=== PATIENT | male | born 1990 | race Caucasian/White ===

== ENCOUNTER 2024-05-17 08:15 | Emergency (ER) | payer BC, SELFPAY ==
[2024-05-17 08:21] VITALS: BP 135/89
[2024-05-17 09:07] LABS: % Basophils 0.2 % (0-2); % Eosinophils 0.6 % (0-6); % Immature Granulocytes 0.4 % (0-0.5); % Lymphocytes 28.4 % (20.5-51.1); % Monocytes 11.3 % (1.7-9.3); % Neutrophils 59.1 % (42.2-75.2); Absolute Lymphocytes 1.5 10^3/uL (1.2-3.4); Absolute Monocytes 0.6 10^3/uL (0.1-0.6); Absolute Neutrophils 3.1 10^3/uL (1.4-6.5); Hematocrit 46.4 % (39.0-52.0); Hemoglobin 15.6 g/dL (13.0-18.0); Mean Corp Hgb Conc. 33.6 g/dL (33.0-37.0); Mean Corpuscular Volume 83.2 fL (80.0-94.0); Nucleated Red Blood Cells % 0 % (-); Red Blood Cell Count 5.58 10^6/uL (4.70-6.10); White Blood Cell Count 5.2 10^3/uL (4.8-10.8)
[2024-05-17 09:10] LABS: ALT (SGPT) 26 U/L (0-50); AST (SGOT) 26 U/L (17-59); Albumin 4.6 g/dl (3.5-5.0); Alkaline Phosphatase 60 U/L (38-126); Blood Urea Nitrogen 12 mg/dl (9-20); Calcium 9.3 mg/dl (8.4-10.2); Carbon Dioxide 25 mmol/L (22-30); Chloride 101 mmol/L (98-107); Glucose 111 mg/dl (70-99); Potassium 4.8 mmol/L (3.5-5.1); Sodium 137 mmol/L (135-145); Total Bilirubin 1.3 mg/dl (0.2-1.3); Total Protein 6.9 g/dl (6.3-8.2); eGFR > 60.00
[2024-05-17 09:21] LABS: Troponin I < 0.012 ng/ml
--- NOTE | 2024-05-17 09:28 | ED.GENMED ---
History of Present Illness
General
Chief Complaint: Chest Pain
Source: patient
Exam Limitations: none
Time Seen by Provider: 05/17/24 09:16
History of Present Illness
History of Present Illness:
34yoM with no significant past medical history presenting for evaluation of chest pain. Patient has been sick for the past 5 days with body aches, chills, fatigue, nausea, and diarrhea. He was seen by his PCP 2 days ago and was told that he likely
had norovirus. He has been having some soreness in his rib cage intermittently since his symptoms began. He woke up this morning around 7 AM with worsening chest pain. His current pain is located centrally and he describes this as a bruised
feeling and a heaviness. The pain improves if he lies flat and worsens slightly if he leans forward. He also feels somewhat short of breath. He denies any pleuritic pain, diaphoresis, syncope.
Past History
Past History
ED Past Medical History: None
ED Past Surgical History: Tonsilectomy and Urological (Hydrocele Removed)
Social History
Tobacco: Non-smoker
Alcohol: Occasional
Personal:
Living: with family
Phy Exam
General Physical Exam
General Presentation: well appearing and no apparent distress
General age: appears stated age
General Skin: warm and dry
General Habitus: normal
General Mental: alert
ENT Exam
ENT Exam: normocephalic
Cardiovascular Exam
Cardiovascular Exam: regular rate/rhythm and no murmur
Pulmonary Exam
Pulmonary Exam: lungs clear, no respiratory distress, no rales, chest non tender, no crackles and no rhonchi
Neurological Exam
Neurological Exam: alert
Cavour Coma Scale
Eye Opening: Spontaneous
Verbal Response: Oriented
Motor Response: Obeys Commands
GCS Total Score: 15
Skin Exam
Skin Exam: normal color and warm/dry
Psychiatric Exam
Psychiatric Exam: normal mood/affect
Scores
Heart Score for Chest Pain Patients
STEMI patient?: No
History: Slightly or Non-Suspicious
ECG: Normal
Age: </= 45 years
Risk Factors: No Risk Factors
Troponin: </= Normal Limit
Heart Score for Chest Pain Patients: 0
Heart Score Risk: 2.5% MACE over next 6 weeks
PE Wells Score
Symptoms of DVT: No
No alternative diagnosis better explains the illness: No
Tachycardia with pulse > 100: No
Immobilization (>=3 days) or surgery within previous 4 weeks: No
Prior history of DVT or pulmonary embolism: No
Presence of hemoptysis: No
Presence of malignancy: No
Pulmonary Embolism Risk Score: 0
Probability of PE: Pt is low risk
PERC Rule Criteria
Age <50 years: Yes
HR <100 bpm: Yes
Room air oxygen sat >94%: Yes
History of DVT or PE: No
Recent trauma or surgery: No
Hemoptysis: No
Exogenous estrogen: No
Clinical signs suggestive of DVT: No
: No
Considered low risk for PE: Yes
PERC Score: 0
PE can be excluded by PERC: Yes
Course
Orders/Labs/Results
Orders:
Orders
05/17/24 08:24
Electrocardiogram (*1) Urgent
Reason for Study: Chest Pain
EKG- Treatment ONCE
05/17/24 08:33
Complete Blood Count/With Diff Urgent
Comprehensive Metabolic Panel Urgent
Troponin I Urgent
05/17/24 09:26
EKG- Treatment ONCE
CR Chest - 2 Views Urgent
Comment:
Reason For Exam: CP
05/17/24 09:34
COVID-19 Antigen Urgent
Source: Nasal Swab
Influenza A+B Rapid Molecular Urgent
VIVIENNE Source: Nasal Swab
Specimen Description:
05/17/24 10:28
Troponin I Urgent
05/17/24 10:30
Electrocardiogram (*1) Urgent
Reason for Study: Chest Pain
Abnormal Lab Results
05/17/24
08:33
Plt Count 117 L 10^3/uL
(130-400)
MPV 12.2 H fL
(7.4-10.4)
Monocytes % 11.3 H %
(1.7-9.3)
Glucose 111 H mg/dl
(70-99)
05/17/24 08:33
05/17/24 08:33
Vital Signs
Initial and Last Documented VS:
Initial Vital Signs
Temp Pulse Resp BP Pulse Ox
97.4 F 81 18 135/89 100
05/17/24 08:21 05/17/24 08:21 05/17/24 08:21 05/17/24 08:21 05/17/24 08:21
Last Documented Vital Signs
Temp Pulse Resp BP Pulse Ox
97.4 F 77 16 135/78 100
05/17/24 08:21 05/17/24 11:59 05/17/24 11:59 05/17/24 11:59 05/17/24 11:59
MDM/Problems Addressed
Differential Diagnosis Includes:
34yoM here with chest pain. Has been having body aches, chills, malaise for the past few days. Saw PCP and was told it was norovirus. Has been having rib soreness for past few days. Chest pain worsened since waking up this morning. VSS. He is well
appearing in no distress. Exam is reassuring. Differential diagnosis includes but is not limited to: viral illness, bronchitis, pneumonia, myocarditis, less likely ACS, doubt PE as oxygen saturation is 100% and he denies pleuritic pain
Initial ED plan: Cardiac labs and EKG obtained in triage. EKG shows NSR without ischemic changes and troponin WNL. Will check delta troponin/EKG, COVID/flu testing, and CXR.
*EKG
Interpreted by ED Provider?: Yes
EKG Intrepretation Date: 05/17/24
Heart Rate: 100
Rate: normal
Rhythm: sinus
Callery: normal axis
Interval: normal interval
QRS Pattern: normal QRS
Ischemia: no ischemia
*Critical Care Note
Total Time (30-74mins, 75-104mins- exclusive of procedures): Not Applicable
Update Note
Update Note:
COVID/flu testing negative. Repeat EKG and troponin unchanged. CXR is clear without infiltrates. Repeat vitals stable. No indication for hospitalization. Advised close f/u with PCP and strict ED return precautions discussed. Patient in agreement
with plan and was discharged in stable condition.
ED Attending Note
-
Portions of this chart may have been created with voice recognition software.� Occasional wrong word or��sound alike� substitutions may have occurred due to the inherent limitations of voice recognition software.
Discharge Plan
Departure
Patient Disposition: Home (Routine Discharge)
Date of Disposition: 05/17/24
Time of Disposition: 11:51
Patient with high blood pressure during this ER visit?: No
Discharge Problem:
Chest pain
Instructions: Chest Pain PCP Follow Up
Prescriptions:
No Action
amoxicillin-pot clavulanate 875-125 mg tablet
1 tab PO BID Qty: 19 0RF
Referrals:
Stacie Jacobo MD [Family Provider] -
Activity Restrictions/Additional Instructions:
Please follow-up with your family doctor by next week. Return to the ER immediately with any new or worsening symptoms.
Interventions
Interventions:
*Risk Screen - Suicide Last Done: 05/17/24 08:21
*General Assessment Last Done: 05/17/24 08:21
*Neglect/Abuse Screening Last Done: 05/17/24 08:21
ED- Fall Risk Assessment Last Done: 05/17/24 11:59
*ED COVID-19 Vaccine History Last Done: 05/17/24 09:19
*Nursing Disposition Last Done: 05/17/24 11:59
ED- Cardiac Assessment Last Done: 05/17/24 09:19
Discharge Date and Time
Discharge Date/Time: 05/17/24 11:59
Print Language: [email or web address]
[2024-05-17 09:55] LABS: COVID-19 Antigen Negative (Negative)
[2024-05-17 09:57] LABS: Mean Platelet Volume 12.2 fL (7.4-10.4); Platelet Count 117 10^3/uL (130-400)
[2024-05-17 10:03] VITALS: BP 131/84
[2024-05-17 11:07] LABS: Troponin I < 0.012 ng/ml
[2024-05-17 11:59] VITALS: BP 135/78
== END 2024-05-17 11:59 | disposition home or self-care (01) ==
LOC: EMR 08:15
PROVIDERS: Physician Assistant; EMERGENCY PHYSICIAN Emergency Medicine; FAMILY PHYSICIAN Family Medicine
DX: R07.89 Other chest pain (principal); Z11.52 Encounter for screening for COVID-19
CPT/HCPCS: 99285; 71046; 80053; 84484; 85025; 87502; 87811; 93005